=== PATIENT | female | born 1945 | race Caucasian/White ===

== ENCOUNTER 2023-05-18 20:15 | Emergency (ER) | payer OTHER, MEDICARE ==
[2023-05-18 20:58] VITALS: TEMP 98.3; BMI 30.7
[2023-05-18] MEDS ORDERED: KETOROLAC TROMETHAMINE 30 MG/1 ML VIAL ONE (21:16)
[2023-05-18] MEDS: KETOROLAC TROMETHAMINE 30 MG/1 ML VIAL IVPUSH ONE (21:21)
[2023-05-18] MEDS: SODIUM CHLORIDE 1,000 ML IV ONE (21:21)
[2023-05-18 21:30] LABS: HEMATOCRIT 43.5 % (32.4-45.2); HEMOGLOBIN 14.5 G/dL (10.7-15.3); MCH 32.5 pg (25.7-33.7); MCHC 33.4 g/dl (32.0-36.0); MEAN CELL VOLUME 97.3 fl (80-96); MEAN PLT VOLUME 8.3 fl (7.5-11.1); PLATELET COUNT 260.1 10^3/uL (134-434); RBC 4.47 10^6/uL (3.60-5.2); RDW 12.9 % (11.6-15.6)
[2023-05-18 21:54] LABS: ALBUMIN 4.2 g/dl (3.4-5.0); BILIRUBIN,TOTAL 0.9 mg/dl (0.2-1); CALCIUM 9.7 mg/dl (8.5-10.1); CREATININE 0.8 mg/dl (0.6-1.3); POTASSIUM 3.9 mmol/L (3.5-5.1); TOT PROT 7.3 g/dl (6.4-8.2)
[2023-05-18 22:11] VITALS: BP 159/60; PULSE 74; RESP 16
[2023-05-18] MEDS ORDERED: ACETAMINOPHEN INJECTION 100 ML IVPB ONE (22:50)
[2023-05-18] MEDS: ACETAMINOPHEN 1000 MG/100 ML BAG IVPB ONE (22:50)
[2023-05-18] MEDS ORDERED: morphine SULFATE 4 MG/ML VIAL ONE (23:53)
[2023-05-18] MEDS: morphine CARPU-JECT 4 MG/1 ML DISP.SYRIN IVPUSH ONE (23:57)
[2023-05-19] MEDS: CYCLOBENZAPRINE HCL 10 MG TABLET (FP) PO ONE (00:35)
[2023-05-19] MEDS: NITROFURANTOIN MACROCRYSTAL 50 MG CAPSULE (FP) PO SCH (00:35)
[2023-05-19] MEDS ORDERED: CYCLOBENZAPRINE HCL 5 MG TABLET ONE (00:38)
[2023-05-19] MEDS ORDERED: NITROFURANTOIN MONOHYD/M-CRYST 100 MG CAPSULE PO ONE (00:38)
== END 2023-05-19 00:48 | disposition home or self-care (01) ==
LOC: FER 20:15
PROC: 3E033NZ Introduction of Analgesics, Hypnotics, Sedatives into Peripheral Vein, Percutaneous Approach (ICD-10-PCS; principal; 2023-05-18)
PROC: 3E0333Z Introduction of Anti-inflammatory into Peripheral Vein, Percutaneous Approach (ICD-10-PCS; 2023-05-18)
PROC: 3E033GC Introduction of Other Therapeutic Substance into Peripheral Vein, Percutaneous Approach (ICD-10-PCS; 2023-05-18)
PROC: 3E0337Z Introduction of Electrolytic and Water Balance Substance into Peripheral Vein, Percutaneous Approach (ICD-10-PCS; 2023-05-18)
DX: R10.84 Generalized abdominal pain (principal); N30.01 Acute cystitis with hematuria
CPT/HCPCS: 36415; 74176-TC; 80053; 81003; 81015; 85027; 87086; 87186; 96361; 96374; 96375; 99284-25; J0131

== ENCOUNTER 2023-05-20 10:43 | Emergency (ER) | payer OTHER, MEDICARE ==
[2023-05-20] MEDS ORDERED: KETOROLAC TROMETHAMINE 30 MG/1 ML VIAL ONE (11:18)
[2023-05-20] MEDS ORDERED: LIDOCAINE 5% TOPICAL PATCH ONE (11:19)
[2023-05-20] MEDS: LIDOCAINE 5% TOPICAL PATCH TP ONE (11:25)
[2023-05-20] MEDS: KETOROLAC TROMETHAMINE 30 MG/1 ML VIAL IM ONE (11:25)
[2023-05-20 11:26] VITALS: BP 153/83; PULSE 87; RESP 18; TEMP 98.6; BMI 30.3
[2023-05-20] MEDS ORDERED: LIDOCAINE PATCH REMOVAL MC ONE (22:00)
== END 2023-05-20 12:54 | disposition home or self-care (01) ==
LOC: FER 10:43
PROC: 3E0233Z Introduction of Anti-inflammatory into Muscle, Percutaneous Approach (ICD-10-PCS; principal; 2023-05-20)
DX: M54.50 Low back pain, unspecified (principal)
CPT/HCPCS: 99284-25